=== PATIENT | male | born 1955 | race Two or more races ===

== ENCOUNTER 2022-02-13 11:55 | Outpatient (REF) | payer OTHER, SELFPAY ==
--- NOTE | ~2022-02-13 | XR_ITS ---
EXAMINATION: XR CERVICAL SPINE CLINICAL INFORMATION: Right C3 and C4 impingement. COMPARISON: None TECHNIQUE: 6 views of the cervical spine were obtained. FINDINGS: Vertebral body heights and alignment are normal. There is moderate disc space narrowing at C5-C6 and C6-C7. The remaining disc spaces well-maintained. No acute fracture or spondylolisthesis is seen. There is multi-level cervical spondylosis, most pronounced at C5-C6 and C6-C7. The posterior elements are intact. There is bilateral neural foraminal narrowing at C5-C6. The dens is intact. There is no prevertebral soft tissue swelling. XR/XR cervical spine 4V IMPRESSION: 1. There is moderate degenerative disc disease at C5-C6 and C6-C7. 2. There is multi-level cervical spondylosis, most pronounced C5-C6 and C6-C7. 3. There is bilateral neural foraminal narrowing at C5-C6.
== END 2022-02-13 11:56 | disposition home or self-care (01) ==
LOC: HO.XRAY 11:55
PROVIDERS: PCP Internal Medicine; Visit Provider Psychiatry & Neurology Neurology
DX: M47.812 Spondylosis without myelopathy or radiculopathy, cervical region (principal)
CPT/HCPCS: 72050